=== PATIENT | female | born 1960 | race African-American/Black ===

== ENCOUNTER → 2016-10-25 | Outpatient (CLI) | payer OTHER ==
[~2016-10-25] MED LIST: TIZA2TAB PO
[2016-10-25 12:02] LABS: BLOOD, URINE NEG (NEG); COMMENT (UR) CULT NOT INDICATED; CULTURE IF INDICATED CULT NOT INDICATED; GLUCOSE,URINE NEG (NEG); KETONE, URINE NEG (NEG); NITRITE,URINE NEG (NEG); SQUAMOUS EPITHELIAL CELL URINE <1 /hpf (0-5); URINE COLOR LIGHT-YELLOW (YELLW/STRAW)
== END ==
LOC: CLAB 11:15
PROVIDERS: ATTEND Nurse Practitioner Family
DX: R35.0 Frequency of micturition (principal)
CPT/HCPCS: 81001

== ENCOUNTER 2017-08-21 08:17 | Emergency (ER) | payer SELFPAY ==
[~2017-08-21] VITALS: Ht 175.3 cm; Wt 60.0 kg
[2017-08-21 08:26] VITALS: BP 110/66; PULSE 78; RESP 22; TEMP 99.2; O2SAT 95
--- NOTE | 2017-08-21 08:43 | PD ---
HPI Chief Complaint: Chest Pain Time Seen by Provider: 08:33 Travel History International Travel<30 days: No Contact w/Intl Traveler<30days: No Traveled to known affect area: No History of Present Illness HPI The patient is a 57-year-old Megan female who presents to the emergency department via EMS for chest pain. The patient states the chest pain started at 4 AM while she was sleeping, is epigastric to substernal, radiates to the back, described as pressure and sharp, and associated mild nausea. The patient does have a history of reflux, however, states the symptoms are different. The patient did have 2 beers to drink last night and did use cocaine yesterday. The patient denies any known history of coronary artery disease, hyperlipidemia, or diabetes. She does have a history of hypertension, states her mother and father both had heart attacks in their 70s. She denies any known history of pancreatitis. Patient did receive aspirin and nitroglycerin prior to arrival that did not alleviate her symptoms. She denies any exertional component or shortness of breath. Symptoms are moderate. The patient does have a history tobacco use at 5-6 cigarettes per day. PFSH Past Medical History Asthma: No Blood Disorders: No Heart Rhythm Problems: No Cancer: No Cardiovascular Problems: No High Cholesterol: No Chest Pain: Yes Congestive Heart Failure: No COPD: No Diabetes: Yes (BORDERLINE) Endocrine: No Genitourinary: No (URGENCY ) Headaches: Yes Immune Disorder: No Musculoskeletal: No Neurologic: No Psychiatric: No Reproductive: No Sleep Apnea: No Thyroid Disease: No ?: Not Past Surgical History Section: Yes ( X2) Social History Alcohol Use: Yes (OCC) Tobacco Use: Yes (7 CIG/DAY) Substance Use: Yes (COCAINE STATES LAST USE WAS SUPERBOWL) Allergies-Medications (Allergen,Severity, Reaction): Coded Allergies: No Known Allergies (Unverified , 10/25/16) Reported Meds & Prescriptions Reported Meds & Active Scripts Active No Active Prescriptions or Reported Medications Review of Systems Except as stated in HPI: all other systems reviewed are Neg General / Constitutional: No: Fever HENT: No: Lightheadedness Cardiovascular: Positive: Chest Pain or Discomfort Respiratory: No: Shortness of Breath Gastrointestinal: Positive: Nausea, Abdominal Pain, No: Vomiting, Diarrhea Neurologic: No: Dizziness Psychiatric: Positive: Substance Abuse Physical Exam Narrative GENERAL: Awake, alert, pleasant 57-year-old female who appears her stated age and is in no acute respiratory distress. SKIN: Focused skin assessment warm/dry. HEAD: Atraumatic. Normocephalic. EYES: Pupils equal and round. Mild exophthalmos. Mild injection. ENT: No nasal bleeding or discharge. Mucous membranes pink and moist. NECK: Trachea midline. No JVD. CARDIOVASCULAR: Regular rate and rhythm. No murmur appreciated. RESPIRATORY: No accessory muscle use. Clear to auscultation. Breath sounds equal bilaterally. GASTROINTESTINAL: Abdomen soft, mild epigastric tenderness. No guarding or rigidity. Back: No CVA tenderness. MUSCULOSKELETAL: No obvious deformities. No clubbing. No cyanosis. No edema. NEUROLOGICAL: Awake and alert. No obvious cranial nerve deficits. Motor grossly within normal limits. Normal speech. PSYCHIATRIC: Appropriate mood and affect; insight and judgment normal. Data Data Last Documented VS Vital Signs Date Time Temp Pulse Resp B/P (MAP) Pulse Ox O2 Delivery O2 Flow Rate FiO2 08/21/17 12:20 82 17 120/72 (88) 97 Room Air 08/21/17 08:26 99.2 Orders Orders Electrocardiogram (08/21/17 08:39) Ckmb (Isoenzyme) Profile (08/21/17 08:39) Complete Blood Count With Diff (08/21/17 08:39) Comprehensive Metabolic Panel (08/21/17 08:39) Magnesium (Mg) (08/21/17 08:39) Prothrombin Time / Inr (Pt) (08/21/17 08:39) Act Partial Throm Time (Ptt) (08/21/17 08:39) Troponin I (08/21/17 08:39) Lipase (08/21/17 08:39) Chest, Single Ap (08/21/17 08:39) Ecg Monitoring (08/21/17 08:39) Bilateral Bp Monitoring (08/21/17 08:39) Iv Access Insert/Monitor (08/21/17 08:39) Oximetry (08/21/17 08:39) Oxygen Administration (08/21/17 08:39) Morphine Inj (Morphine Inj) (08/21/17 08:45) Sodium Chlorid 0.9% 500 Ml Inj (Ns 500 M (08/21/17 08:45) Ondansetron Inj (Zofran Inj) (08/21/17 08:45) Al-Mag Hy-Si 40-40-4 Mg/Ml Liq (Mag-Al P (08/21/17 08:45) Lidocaine 2% Viscous (Xylocaine 2% Visco (08/21/17 08:45) Drug Screen, Random Urine (08/21/17 08:39) Alcohol (Ethanol) (08/21/17 08:40) CKMB (08/21/17 08:40) CKMB% (08/21/17 08:40) Troponin I (08/21/17 11:40) Labs Laboratory Tests Test 08/21/17 08:40 08/21/17 09:00 08/21/17 11:40 White Blood Count 5.9 TH/MM3 Red Blood Count 4.25 MIL/MM3 Hemoglobin 14.2 GM/DL Hematocrit 41.7 % Mean Corpuscular Volume 98.2 FL Mean Corpuscular Hemoglobin 33.3 PG Mean Corpuscular Hemoglobin Concent 34.0 % Red Cell Distribution Width 13.6 % Platelet Count 114 TH/MM3 Mean Platelet Volume 10.8 FL Neutrophils (%) (Auto) 73.8 % Lymphocytes (%) (Auto) 16.6 % Monocytes (%) (Auto) 7.7 % Eosinophils (%) (Auto) 1.3 % Basophils (%) (Auto) 0.6 % Neutrophils # (Auto) 4.3 TH/MM3 Lymphocytes # (Auto) 1.0 TH/MM3 Monocytes # (Auto) 0.5 TH/MM3 Eosinophils # (Auto) 0.1 TH/MM3 Basophils # (Auto) 0.0 TH/MM3 CBC Comment DIFF FINAL Differential Comment Prothrombin Time 10.0 SEC Prothromb Time International Ratio 1.0 RATIO Activated Partial Thromboplast Time 27.8 SEC Blood Urea Nitrogen 13 MG/DL Creatinine 1.04 MG/DL Random Glucose 107 MG/DL Total Protein 7.8 GM/DL Albumin 3.2 GM/DL Calcium Level 9.1 MG/DL Magnesium Level 1.9 MG/DL Alkaline Phosphatase 70 U/L Aspartate Amino Transf (AST/SGOT) 20 U/L Alanine Aminotransferase (ALT/SGPT) 18 U/L Total Bilirubin 0.4 MG/DL Sodium Level 137 MEQ/L Potassium Level 4.1 MEQ/L Chloride Level 104 MEQ/L Carbon Dioxide Level 26.3 MEQ/L Anion Gap 7 MEQ/L Estimat Glomerular Filtration Rate 66 ML/MIN Total Creatine Kinase 110 U/L Creatine Kinase MB 1.2 NG/ML Troponin I LESS THAN 0.02 NG/ML LESS THAN 0.02 NG/ML Lipase 344 U/L Ethyl Alcohol Level LESS THAN 3 MG/DL Urine Opiates Screen NEG Urine Barbiturates Screen NEG Urine Amphetamines Screen NEG Urine Benzodiazepines Screen NEG Urine Cocaine Screen POS Urine Cannabinoids Screen NEG Exceptions Acute Myocardial Infarction ASA Not Given on Arrival: Already Given by EMS MDM Medical Decision Making Medical Screen Exam Complete: Yes Emergency Medical Condition: Yes Medical Record Reviewed: Yes Interpretation(s) EKG reveals sinus rhythm with sinus arrhythmia. No ischemic changes noted. Last Impressions Chest X-Ray 08/21/17 0839 Signed Impressions: Service Date/Time: Monday, August 21, 2017 08:43 - CONCLUSION: 1. No acute cardiopulmonary disease. Rik Luu MD Laboratory Tests Test 08/21/17 08:40 08/21/17 09:00 08/21/17 11:40 White Blood Count 5.9 TH/MM3 Red Blood Count 4.25 MIL/MM3 Hemoglobin 14.2 GM/DL Hematocrit 41.7 % Mean Corpuscular Volume 98.2 FL Mean Corpuscular Hemoglobin 33.3 PG Mean Corpuscular Hemoglobin Concent 34.0 % Red Cell Distribution Width 13.6 % Platelet Count 114 TH/MM3 Mean Platelet Volume 10.8 FL Neutrophils (%) (Auto) 73.8 % Lymphocytes (%) (Auto) 16.6 % Monocytes (%) (Auto) 7.7 % Eosinophils (%) (Auto) 1.3 % Basophils (%) (Auto) 0.6 % Neutrophils # (Auto) 4.3 TH/MM3 Lymphocytes # (Auto) 1.0 TH/MM3 Monocytes # (Auto) 0.5 TH/MM3 Eosinophils # (Auto) 0.1 TH/MM3 Basophils # (Auto) 0.0 TH/MM3 CBC Comment DIFF FINAL Differential Comment Prothrombin Time 10.0 SEC Prothromb Time International Ratio 1.0 RATIO Activated Partial Thromboplast Time 27.8 SEC Blood Urea Nitrogen 13 MG/DL Creatinine 1.04 MG/DL Random Glucose 107 MG/DL Total Protein 7.8 GM/DL Albumin 3.2 GM/DL Calcium Level 9.1 MG/DL Magnesium Level 1.9 MG/DL Alkaline Phosphatase 70 U/L Aspartate Amino Transf (AST/SGOT) 20 U/L Alanine Aminotransferase (ALT/SGPT) 18 U/L Total Bilirubin 0.4 MG/DL Sodium Level 137 MEQ/L Potassium Level 4.1 MEQ/L Chloride Level 104 MEQ/L Carbon Dioxide Level 26.3 MEQ/L Anion Gap 7 MEQ/L Estimat Glomerular Filtration Rate 66 ML/MIN Total Creatine Kinase 110 U/L Creatine Kinase MB 1.2 NG/ML Troponin I LESS THAN 0.02 NG/ML LESS THAN 0.02 NG/ML Lipase 344 U/L Ethyl Alcohol Level LESS THAN 3 MG/DL Urine Opiates Screen NEG Urine Barbiturates Screen NEG Urine Amphetamines Screen NEG Urine Benzodiazepines Screen NEG Urine Cocaine Screen POS Urine Cannabinoids Screen NEG Differential Diagnosis Differential diagnosis includes acute coronary syndrome, esophageal spasm, GERD , pancreatitis, cocaine toxicity, STEMI. Narrative Course IV was established, labs are drawn and sent, and the patient was placed on cardiac telemetry monitoring and continuous pulse oximetry monitoring. EKG was ordered and interpreted. Chest x-ray was obtained. The patient received aspirin and nitroglycerin prior to arrival without any alleviation of her symptoms. Therefore, the patient was administered a GI cocktail, morphine, Zofran, and IV fluids. Chest x-ray was unremarkable. Initial troponin was negative. The patient was reevaluated and was chest pain-free. The patient's symptoms are atypical, therefore, repeat 3 hour troponin was ordered. 3 hour repeat troponin was negative. The patient is advised to stop using cocaine, she is advised to follow-up with her primary physician. Diagnosis Primary Impression: Atypical chest pain Referrals: [facility] as needed Patient Instructions: General Instructions Additional Instructions: Stop using cocaine. Follow-up with a primary physician. Return if symptoms worsen or progress. Med/Other Pt SpecificInfo: Other (take a baby aspirin daily) Scripts No Active Prescriptions or Reported Meds Disposition: 01 DISCHARGE HOME Condition: Stable Eloy Singer MD Aug 21, 2017 08:43
[2017-08-21] MEDS ORDERED: ONDANSETRON HCL 4 MG/2 ML VIAL IVP ONE (08:45)
[2017-08-21] MEDS ORDERED: LIDOCAINE VISCOUS 2% SOLN 15 ML UDC PO ONE (08:45)
[2017-08-21] MEDS ORDERED: ALUMINUM/MAGNESIUM/SIMETH 30 ML CUP PO ONE (08:45)
[2017-08-21] MEDS ORDERED: SODIUM CHLORID 0.9% 500 ML INJ 500 ML IV ONE (08:45)
[2017-08-21] MEDS ORDERED: MORPHINE SULFATE 4 MG/ML INJ IV PUSH ONE (08:45)
[2017-08-21 09:04] LABS: AUTOMATED NEUTROPHIL # 4.3 TH/MM3 (1.8-7.7); BASOPHIL % 0.6 % (0.0-2.0); EOSINOPHIL # 0.1 TH/MM3 (0-0.4); EOSINOPHIL % 1.3 % (0.0-4.0); HEMATOCRIT 41.7 % (35.0-46.0); HEMOGLOBIN 14.2 GM/DL (11.6-15.3); LYMPH % 16.6 % (9.0-44.0); MEAN CELL VOLUME 98.2 FL (80.0-100.0); MEAN CORPUSCULAR HEMOGLOBIN 33.3 PG (27.0-34.0); MEAN PLATELET VOLUME 10.8 FL (7.0-11.0); MONO % 7.7 % (0.0-8.0); MONOCYTE # 0.5 TH/MM3 (0-0.9); NEUT % 73.8 % (16.0-70.0); PLATELET COUNT 114 TH/MM3 (150-450); RED BLOOD COUNT 4.25 MIL/MM3 (4.00-5.30); RED CELL DISTRIBUTION WIDTH 13.6 % (11.6-17.2); WHITE BLOOD COUNT 5.9 TH/MM3 (4.0-11.0)
--- NOTE | 2017-08-21 09:05 | RADRPT ---
EXAM DATE/TIME: 08/21/2017 08:43 [facility] COMPARISON: No previous studies available for comparison. INDICATIONS : Chest pain today. MEDICAL HISTORY : Hypertension. Diabetes. SURGICAL HISTORY : section. ENCOUNTER: Initial ACUITY: 1 day PAIN SCORE: 8/10 LOCATION: Bilateral chest FINDINGS: A single view of the chest demonstrates the lungs to be symmetrically aerated without evidence of mas s, infiltrate or effusion. The cardiomediastinal contours are unremarkable. Osseous structures are intact. CONCLUSION: 1. No acute cardiopulmonary disease. Rik Luu MD on August 21, 2017 at 9:02 Board Certified Radiologist. This report was verified electronically.
[2017-08-21 09:32] LABS: ALT (GPT) 18 U/L (10-53)
[2017-08-21 09:34] LABS: ALBUMIN 3.2 GM/DL (3.4-5.0); AST (GOT) 20 U/L (15-37); BICARBONATE 26.3 MEQ/L (21.0-32.0); BLOOD UREA NITROGEN 13 MG/DL (7-18); CALCIUM 9.1 MG/DL (8.5-10.1); CHLORIDE 104 MEQ/L (98-107); CREATININE 1.04 MG/DL (0.50-1.00); GLOMERULAR FILTRATION RATE 66 ML/MIN (>89); GLUCOSE,RANDOM 107 MG/DL (74-106); MAGNESIUM 1.9 MG/DL (1.5-2.5); SODIUM (NA) 137 MEQ/L (136-145)
[2017-08-21 09:38] LABS: ALKALINE PHOSPHATASE 70 U/L (45-117); TOTAL BILIRUBIN ADULT 0.4 MG/DL (0.2-1.0); TOTAL PROTEIN 7.8 GM/DL (6.4-8.2); TROPONIN I LESS THAN 0.02 NG/ML (0.02-0.05)
[2017-08-21 09:50] VITALS: O2SAT 98
[2017-08-21 12:20] VITALS: BP 120/72; PULSE 82; RESP 17; O2SAT 97
--- NOTE | 2017-08-21 16:05 | EKG ---
Date Performed: 08/21/2017 Time Performed: 08:28:59 PTAGE: 57 years EKG: Sinus rhythm WITH SINUS ARRHYTHMIA POSSIBLE LEFT ATRIAL ENLARGEMENT BORDERLINE ECG Since the prior tracing, there has been no significant change NO PREVIOUS TRACING DOCTOR: Chelsy Grier Interpretating Date/Time 08/21/2017 16:04:17
== END 2017-08-21 14:36 | disposition home or self-care (01) ==
LOC: NEPC 08:17
DX: R07.89 Other chest pain (principal); F17.210 Nicotine dependence, cigarettes, uncomplicated; F14.90 Cocaine use, unspecified, uncomplicated; R11.0 Nausea
CPT/HCPCS: 71045; 80053; 80307; 82550; 82552; 83690; 83735; 84484; 85025; 85610; 85730; 93005; 96361; 96374; 96375; 99285; J2270; J2405; J7040